=== PATIENT | male | born 1960 | race Caucasian/White ===

== ENCOUNTER 2018-10-09 10:13 | Emergency (ER) | payer MEDICAID ==
[~2018-10-09] VITALS: Ht 175.3 cm; Wt 68.2 kg
[2018-10-09 10:43] VITALS: BP 157/85
[2018-10-09] MEDS ORDERED: MUPI22OI30 TOP (11:55)
== END 2018-10-09 12:02 | disposition home or self-care (01) ==
LOC: ER 10:13
DX: L73.8 Other specified follicular disorders (principal)
CPT/HCPCS: 99283